=== PATIENT | female | born 1985 | race Caucasian/White ===

== ENCOUNTER 2020-09-27 11:05 | Outpatient (CLI) | payer OTHER ==
[~2020-09-27] VITALS: Ht 177.8 cm; Wt 114.1 kg
[2020-09-27 11:23] VITALS: BP 145/78
[2020-09-27 11:33] LABS: MICROSCOPIC NOT IND
[2020-09-27 11:46] LABS: TOTAL PROTEIN,URINE RANDOM < 5 mg/dL (0-12)
[2020-09-27 11:58] LABS: BASOPHILS % (AUTO) 0 % (0-1); EOSINOPHILS % (AUTO) 1 % (1-7); LYMPHOCYTES % (AUTO) 12 % (22-44); MEAN CORPUSCULAR HEMOGLOBIN 29.4 pg (27.0-34.8); MEAN CORPUSCULAR HGB CONC 34.3 g/dL (32.4-35.8); MEAN PLATELET VOLUME 8.3 fL (7.4-10.4); MONOCYTES % (AUTO) 6 % (2-9); NEUTROPHILS % (AUTO) 81 % (42-75); PLATELET COUNT 268 x10^3/uL (130-400); RED BLOOD COUNT 4.28 x10^6/uL (3.82-5.3); RED CELL DISTRIBUTION WIDTH 13.3 % (9.6-15.2)
[2020-09-27 11:59] LABS: MD NO
[2020-09-27 12:08] LABS: ALANINE AMINOTRANSFERASE 16 U/L (12-78); ALBUMIN 2.7 g/dL (3.4-5.0); ANION GAP 9 mmol/L (5-15); CALCIUM 9.1 mg/dL (8.5-10.1); CHLORIDE 105 mmol/L (98-107); CREATININE 0.74 mg/dL (0.55-1.02)
[2020-09-27 12:09] LABS: ALKALINE PHOSPHATASE 97 U/L (45-117); BILIRUBIN,TOTAL 0.2 mg/dL (0.2-1.0); TOTAL PROTEIN 6.8 g/dL (6.4-8.2)
[2020-09-27 12:13] LABS: BILIRUBIN, DIRECT < 0.1 mg/dL (0.1-0.2)
== END 2020-09-27 12:40 | disposition home or self-care (01) ==
LOC: LDOP 11:05
PROVIDERS: ATTEND Obstetrics & Gynecology
DX: O09.513 Supervision of elderly primigravida, third trimester (principal); O13.3 Gestational [pregnancy-induced] hypertension without significant proteinuria, third trimester; Z3A.36 36 weeks gestation of pregnancy
CPT/HCPCS: 36415; 59025; 80053; 81003; 82248; 82570; 84156; 84550; 85025

== ENCOUNTER 2020-10-11 05:07 | Inpatient (IN) | payer OTHER ==
[~2020-10-11] VITALS: Ht 177.8 cm; Wt 115.9 kg
[2020-10-11 05:23] VITALS: BP 149/82
[2020-10-11] MEDS ORDERED: NEWBORN KIT ONE (05:23)
[2020-10-11] MEDS ORDERED: TERBUTALINE 1 MG/ML, 1ML IVPush PRN (05:30)
[2020-10-11] MEDS ORDERED: FENTANYL PF 100 MCG/2ML IV PRN (05:30)
[2020-10-11] MEDS ORDERED: CALCIUM CARBONATE 500 MG TAB.CHEW PO PRN (05:30)
[2020-10-11] MEDS ORDERED: FENTANYL PF 100 MCG/2ML IVPush PRN (05:30)
[2020-10-11] MEDS ORDERED: OXYTOCIN 30U/ 0.9% NaCL 500ML 500 ML IV ONE (05:30)
[2020-10-11] MEDS ORDERED: ONDANSETRON 2MG/ML, 2ML IVPush PRN (05:30)
[2020-10-11] MEDS ORDERED: TERBUTALINE 1 MG/ML, 1ML SQ PRN (05:30)
[2020-10-11] MEDS ORDERED: LACTATED RINGERS 1,000 ML IV SCH (05:30)
[2020-10-11] MEDS ORDERED: D5%-LACTATED RINGERS 1,000 ML IV SCH (05:30)
[2020-10-11] MEDS ORDERED: PREN1TAB62 PO (05:44)
[2020-10-11] MEDS ORDERED: MV-M1TAB16 PO (05:46)
[2020-10-11 06:03] LABS: BASOPHILS % (AUTO) 0 % (0-1); EOSINOPHILS % (AUTO) 1 % (1-7); LYMPHOCYTES % (AUTO) 14 % (22-44); MEAN CORPUSCULAR HEMOGLOBIN 29.1 pg (27.0-34.8); MEAN CORPUSCULAR HGB CONC 33.5 g/dL (32.4-35.8); MEAN PLATELET VOLUME 8.7 fL (7.4-10.4); MONOCYTES % (AUTO) 4 % (2-9); NEUTROPHILS % (AUTO) 80 % (42-75); PLATELET COUNT 271 x10^3/uL (130-400); RED BLOOD COUNT 4.27 x10^6/uL (3.82-5.3); RED CELL DISTRIBUTION WIDTH 13.5 % (9.6-15.2)
[2020-10-11 06:11] LABS: CALCIUM 8.7 mg/dL (8.5-10.1); CHLORIDE 106 mmol/L (98-107)
[2020-10-11 06:11] LABS: MICROSCOPIC INDICATED
[2020-10-11 06:17] LABS: ALANINE AMINOTRANSFERASE 19 U/L (12-78); ALBUMIN 2.5 g/dL (3.4-5.0); ALKALINE PHOSPHATASE 110 U/L (45-117); ANION GAP 10 mmol/L (5-15); BILIRUBIN,TOTAL 0.1 mg/dL (0.2-1.0); CREATININE 0.81 mg/dL (0.55-1.02); TOTAL PROTEIN 6.6 g/dL (6.4-8.2)
[2020-10-11 06:25] LABS: MD NO
[2020-10-11 06:26] LABS: BILIRUBIN, DIRECT < 0.1 mg/dL (0.1-0.2)
[2020-10-11] MEDS: MISOPROSTOL 25 MCG TABLET VG PRN ×2 (06:59→11:00)
[2020-10-11] MEDS ORDERED: OXYTOCIN 30U/ 0.9% NaCL 500ML 500 ML IV PRN (16:30)
== END 2020-10-12 07:03 | disposition home or self-care (01) | DRG 833 ==
LOC: LDIP 05:07
PROVIDERS: ADMIT Obstetrics & Gynecology; ATTEND Obstetrics & Gynecology
DX: O13.3 Gestational [pregnancy-induced] hypertension without significant proteinuria, third trimester (principal); O26.893 Other specified pregnancy related conditions, third trimester; Z20.822 Contact with and (suspected) exposure to COVID-19; Z3A.38 38 weeks gestation of pregnancy; Z67.91 Unspecified blood type, Rh negative; Z82.49 Family history of ischemic heart disease and other diseases of the circulatory system; Z88.2 Allergy status to sulfonamides
CPT/HCPCS: 36415; 59025; 59200; 76815; 80053; 81001; 82248; 82570; 84156; 84550; 85025; 86592; 86850; 86900; 87635; 96360; G0378; J2590; J7120

== ENCOUNTER 2020-10-21 10:21 | Inpatient (IN) | payer OTHER ==
[~2020-10-21] VITALS: Ht 177.8 cm; Wt 115.0 kg
[~2020-10-21 10:21] MED LIST: MV-M1TAB16 PO; PREN1TAB62 PO
[2020-10-21] MEDS ORDERED: TERBUTALINE 1 MG/ML, 1ML SQ PRN (10:30)
[2020-10-21] MEDS ORDERED: FENTANYL PF 100 MCG/2ML IVPush PRN (10:30)
[2020-10-21] MEDS ORDERED: OXYTOCIN 30U/ 0.9% NaCL 500ML 500 ML IV ONE (10:30)
[2020-10-21] MEDS: D5%-LACTATED RINGERS 1,000 ML IV SCH ×2 (10:30→18:30)
[2020-10-21] MEDS ORDERED: TERBUTALINE 1 MG/ML, 1ML IVPush PRN (10:30)
[2020-10-21] MEDS ORDERED: CALCIUM CARBONATE 500 MG TAB.CHEW PO PRN (10:30)
[2020-10-21] MEDS ORDERED: FENTANYL PF 100 MCG/2ML IV PRN (10:30)
[2020-10-21] MEDS ORDERED: ONDANSETRON 2MG/ML, 2ML IVPush PRN (10:30)
[2020-10-21] MEDS ORDERED: OXYTOCIN 30U/ 0.9% NaCL 500ML 500 ML ONE (10:54)
[2020-10-21 10:55] VITALS: BP 134/88
[2020-10-21 10:57] LABS: BASOPHILS % (AUTO) 1 % (0-1); EOSINOPHILS % (AUTO) 1 % (1-7); LYMPHOCYTES % (AUTO) 13 % (22-44); MEAN CORPUSCULAR HEMOGLOBIN 29.3 pg (27.0-34.8); MEAN CORPUSCULAR HGB CONC 33.7 g/dL (32.4-35.8); MEAN PLATELET VOLUME 8.5 fL (7.4-10.4); MONOCYTES % (AUTO) 6 % (2-9); NEUTROPHILS % (AUTO) 80 % (42-75); PLATELET COUNT 290 x10^3/uL (130-400); RED CELL DISTRIBUTION WIDTH 13.3 % (9.6-15.2)
[2020-10-21] MEDS ORDERED: OXYTOCIN 30U/ 0.9% NaCL 500ML 500 ML IV PRN (11:00)
[2020-10-21] MEDS ORDERED: PLEASE ENTER HEIGHT AND WEIGHT MC SCH (11:00)
[2020-10-21 11:03] LABS: ALANINE AMINOTRANSFERASE 17 U/L (12-78); ALBUMIN 2.7 g/dL (3.4-5.0); ANION GAP 8 mmol/L (5-15); CALCIUM 8.9 mg/dL (8.5-10.1); CHLORIDE 104 mmol/L (98-107); CREATININE 0.76 mg/dL (0.55-1.02)
[2020-10-21 11:05] LABS: MD NO
[2020-10-21 11:06] LABS: ALKALINE PHOSPHATASE 112 U/L (45-117); BILIRUBIN,TOTAL 0.2 mg/dL (0.2-1.0)
[2020-10-21] MEDS: LACTATED RINGERS 1,000 ML IV SCH ×2 (11:06→14:35)
[2020-10-21 11:11] LABS: MICROSCOPIC NOT IND
[2020-10-21 11:18] LABS: TOTAL PROTEIN,URINE RANDOM < 5 mg/dL (0-12)
[2020-10-21] MEDS ORDERED: BUPIVACAINE 0.25% ONE (16:42)
[2020-10-21] MEDS ORDERED: FENTANYL/BUPIV./NS/PF 250 ML EPIDCONT ONE (16:42)
[2020-10-22] MEDS: D5%-LACTATED RINGERS 1,000 ML IV SCH ×4 (02:30→22:51)
[2020-10-22] MEDS ORDERED: FENTANYL/BUPIV./NS/PF 250 ML EPIDCONT SCH (05:30)
[2020-10-22] MEDS ORDERED: LACTATED RINGERS 1,000 ML IVBOLUS PRN (05:30)
[2020-10-22] MEDS ORDERED: EPHEDRINE 50 MG/ML, 1ML IVPush PRN (05:30)
[2020-10-22] MEDS: LACTATED RINGERS 1,000 ML IV SCH ×7 (05:30→22:51)
[2020-10-22] MEDS ORDERED: NEWBORN KIT ONE (09:29)
[2020-10-22] MEDS ORDERED: IBUPROFEN 800 MG TABLET PO PRN (11:00)
[2020-10-22] MEDS ORDERED: ONDANSETRON 2MG/ML, 2ML IV PRN (11:00)
[2020-10-22] MEDS: OXYTOCIN 30U/ 0.9% NaCL 500ML 500 ML IV SCH ×2 (11:00→19:59)
[2020-10-22] MEDS ORDERED: CARBOPROST TROMETHAMINE 250 MCG/ML, 1ML IM PRN (11:00)
[2020-10-22] MEDS ORDERED: MISOPROSTOL 200 MCG TABLET PR PRN (11:00)
[2020-10-22] MEDS ORDERED: OXYcodone/APAP 5/325MG TABLET PO PRN (11:00)
[2020-10-22] MEDS ORDERED: SIMETHICONE 80 MG CHEW TAB PO PRN (11:00)
[2020-10-22] MEDS ORDERED: OXYcodone IR 5MG TABLET PO PRN (11:00)
[2020-10-22] MEDS ORDERED: DOCUSATE 100 MG CAPSULE PO PRN (11:00)
[2020-10-22] MEDS ORDERED: METOCLOPRAMIDE 5 MG/ML, 2ML IV PRN (11:00)
[2020-10-22] MEDS ORDERED: TRANEXAMIC ACID 1,000 MG in SODIUM CHLORIDE 0.9% 100 ML IVPB ONE (11:00)
[2020-10-22] MEDS ORDERED: GLYCERIN ADULT SUPP PR PRN (11:00)
[2020-10-22] MEDS ORDERED: BISACODYL 10 MG SUPP PR PRN (11:00)
[2020-10-22] MEDS ORDERED: ACETAMINOPHEN 325 MG TABLET PO PRN (11:00)
[2020-10-22 12:45] VITALS: BP 128/87
[2020-10-22 16:23] VITALS: BP 127/88
[2020-10-22] MEDS: IBUPROFEN 600 MG TABLET PO PRN (18:12)
[2020-10-22 19:13] LABS: MEAN CORPUSCULAR HEMOGLOBIN 29.3 pg (27.0-34.8); MEAN CORPUSCULAR HGB CONC 33.2 g/dL (32.4-35.8); MEAN PLATELET VOLUME 8.3 fL (7.4-10.4); PLATELET COUNT 285 x10^3/uL (130-400); RED BLOOD COUNT 3.86 x10^6/uL (3.82-5.3); RED CELL DISTRIBUTION WIDTH 13.4 % (9.6-15.2)
[2020-10-22 19:25] VITALS: BP 131/85
[2020-10-22 19:30] LABS: MD YES
[2020-10-22 19:32] LABS: BANDS%(MANUAL) 7 % (0-7); EOS#(MANUAL) 0.21 x10^3/uL (0.0-0.4); EOS% (MANUAL) 1 % (1-7); LYMPH#(MANUAL) 1.28 x10^3/uL (1-3.4); LYMPHS% (MANUAL) 6 % (22-44); METAMYELOCYTES# (MANUAL) 0.21 x10^3/uL (0-0); METAMYELOCYTES% (MANUAL) 1 % (0-1); MONOS#(MANUAL) 0.86 x10^3/uL (0.3-2.7); MONOS% (MANUAL) 4 % (2-9); SEG#(MANUAL) 17.33 x10^3/uL (1.8-6.8); SEGS% (MANUAL) 81 % (42-75)
[2020-10-22 19:33] LABS: <PLATELET ESTIMATE> ADEQUATE; <PLT MORPHOLOGY> NORMAL PLT MORPH; <RBC MORPHOLOGY> NORMAL
[2020-10-22] MEDS ORDERED: RHOGAM FROM BLOOD BANK 1 NOTE EA IM/IV ONE (23:30)
[2020-10-23] VITALS: BP 124/78
[2020-10-23] MEDS: LACTATED RINGERS 1,000 ML IV SCH ×2 (05:30→10:30)
[2020-10-23 06:15] VITALS: BP 116/74
[2020-10-23] MEDS: OXYTOCIN 30U/ 0.9% NaCL 500ML 500 ML IV SCH (07:00)
[2020-10-23] MEDS ORDERED: IBUP-1222 PO (07:23)
[2020-10-23] MEDS: IBUPROFEN 600 MG TABLET PO PRN (08:03)
[2020-10-23 08:15] VITALS: BP 122/83
[2020-10-23] MEDS ORDERED: PRENATAL VIT/IRON/FA 1 EACH TABLET PO SCH (09:00)
[2020-10-23] MEDS: D5%-LACTATED RINGERS 1,000 ML IV SCH (10:30)
== END 2020-10-23 13:50 | disposition home or self-care (01) | DRG 806 ==
LOC: LDIP 10:21 → 2NW 10-22 12:40
PROVIDERS: ADMIT Obstetrics & Gynecology; ATTEND Obstetrics & Gynecology
PROC: 10E0XZZ Delivery of Products of Conception, External Approach (ICD-10-PCS; principal; 2020-10-22)
PROC: 0KQM0ZZ Repair Perineum Muscle, Open Approach (ICD-10-PCS; 2020-10-22)
PROC: 3E033VJ Introduction of Other Hormone into Peripheral Vein, Percutaneous Approach (ICD-10-PCS; 2020-10-22)
PROC: 3E0R3BZ Introduction of Anesthetic Agent into Spinal Canal, Percutaneous Approach (ICD-10-PCS; 2020-10-22)
PROC: 00HU33Z Insertion of Infusion Device into Spinal Canal, Percutaneous Approach (ICD-10-PCS; 2020-10-22)
DX: O13.4 Gestational [pregnancy-induced] hypertension without significant proteinuria, complicating childbirth (principal); O41.03X0 Oligohydramnios, third trimester, not applicable or unspecified; Z37.0 Single live birth; Z3A.40 40 weeks gestation of pregnancy; Z20.822 Contact with and (suspected) exposure to COVID-19; O26.893 Other specified pregnancy related conditions, third trimester; Z82.49 Family history of ischemic heart disease and other diseases of the circulatory system; O70.1 Second degree perineal laceration during delivery; Z67.11 Type A blood, Rh negative
CPT/HCPCS: 36415; 80053; 81003; 82570; 84156; 84550; 85025; 85461; 86592; 86850; 86900; 87635; 88305; G0378; J2790; J3010; J2590; J7120